=== PATIENT | female | born 1970 | race Two or more races ===

== ENCOUNTER 2018-12-03 13:03 | Day surgery (SDC) | payer OTHER ==
[2018-12-03] MEDS ORDERED: MIDAZOLAM 1 MG/ML 2 ML INJ (15:59)
[2018-12-03] MEDS ORDERED: LIDOCAINE 2% (SDV) 5 ML INJ (16:14)
[2018-12-03] MEDS ORDERED: PROPOFOL 60 ML (16:14)
== END 2018-12-03 17:55 | disposition home or self-care (01) ==
LOC: GIL 13:03
DX: K92.1 Melena (principal); K64.8 Other hemorrhoids; K29.70 Gastritis, unspecified, without bleeding
CPT/HCPCS: 43239; 82962; 88305

== ENCOUNTER 2018-12-03 20:48 | Emergency (ER) | payer OTHER | END 2018-12-03 21:53 | disposition home or self-care (01) | LOC: E/R 21:53 | DX: F41.9 Anxiety disorder, unspecified (principal); I10 Essential (primary) hypertension; F17.210 Nicotine dependence, cigarettes, uncomplicated; R40.2142 Coma scale, eyes open, spontaneous, at arrival to emergency department; R40.2242 Coma scale, best verbal response, confused conversation, at arrival to emergency department; R40.2342 Coma scale, best motor response, flexion withdrawal, at arrival to emergency department; Z79.84 Long term (current) use of oral hypoglycemic drugs | CPT/HCPCS: 99282; Z7502 ==